=== PATIENT | female | born 1970 | race Caucasian/White ===

== ENCOUNTER 2022-11-12 09:34 | Emergency (ER) | payer SELFPAY ==
[2022-11-12 10:15] VITALS: BP 147/91; PULSE 65; RESP 20; TEMP 36.7; O2SAT 95; BMI 36.8
--- NOTE | 2022-11-12 10:23 | EXP.UTC ---
Discharge Plan Disposition Patient Disposition: Home, Self-Care Condition: Good Prescriptions Prescriptions: New prednisone [prednisone] 20 mg tablet 20 mg PO BID 4 Days Qty: 8 0RF amoxicillin [amoxicillin] 875 mg tablet 875 mg PO Q12H Qty: 20 0RF benzonatate [benzonatate] 100 mg capsule 100 mg PO TIDP PRN (Reason: Cough) Qty: 30 0RF Referrals Follow up/Referrals: Provider,Referral, MD [Primary Care Provider] - See instructions Activity Restrictions/Add. Instructions Additional Instructions/Restrictions: Drink plenty of fluids. Take tylenol or ibuprofen for pain or fever. Take the medications as directed. Follow up with your regular doctor. GO TO THE ER FOR ANY WORSENING SYMPTOMS Throw your tooth brush away and get a new one. Clinical Impressions Clinical Impression: Strep throat Stand Alone Forms Stand Alone Forms: Work/School Release Instructions Patient Instructions: Strep Throat, DI for Strep Throat Discharge ED Provider: Eric Burgos [facility] [place] HPI General Stated complaint: Sore throat, congestion Time Seen by Provider: 11/12/22 10:23 History of Present Illness Provider Complaint: She states that for the past 3 days she has had sore throat, chills, body aches, sinus congestion and malaise. Related Data Previous Rx's Medication Instructions Recorded amoxicillin 875 mg tablet 875 mg PO Q12H #20 tabs 11/12/22 benzonatate 100 mg capsule 100 mg PO TIDP PRN Cough #30 caps 11/12/22 prednisone 20 mg tablet 20 mg PO BID 4 days #8 tabs 11/12/22 Allergies Allergy/AdvReac Type Severity Reaction Status Date / Time No Known Allergies Allergy Verified 11/12/22 10:24 [facility] Disclaimer: The information contained in this section may have been updated after the patient was seen, as this information can be updated by other users. Social History Smoking Status: Never smoker alcohol intake: never current occupational status: employed Travel in the last 8 weeks: None ROS Obtained: Yes All systems reviewed & no additional complaints except as documented Constitutional Constitutional: Reports chills and Reports fever(s) Eyes Eyes: Denies eye discharge ENT Ears, Nose, Mouth, and Throat: Reports as per HPI Cardiovascular Cardiovascular: Denies chest pain Respiratory Respiratory: Denies chest congestion and Reports cough Gastrointestinal Gastrointestingal: Reports nausea; Denies abdominal pain, constipation, cramping, diarrhea or vomiting Musculoskeletal Musculoskeletal: Denies arthralgias Integumentary/Breasts Skin/Breast: Denies rash Neurologic Neurologic: Denies paresthesias Physical Exam General General appearance: alert and in no apparent distress Head Head exam: atraumatic, normocephalic and normal inspection Eye Eye exam: Present normal appearance, PERRL and EOMI ENT ENT exam: Present mucous membranes moist and normal external ear exam Expanded ENT Exam TM/Canal exam: Bilateral TM: erythema and bulging Nose exam: Absent sinus tenderness Mouth exam: Present normal external inspection; Absent drooling Teeth exam: Present normal inspection Throat exam: Present tonsillar erythema, tonsillomegaly and tonsillar exudate Neck Neck exam: Present normal inspection, full ROM and trachea midline; Absent tenderness, meningismus or lymphadenopathy Chest Chest inspection: Present normal inspection and symmetric chest wall rise; Absent tenderness Respiratory Respiratory exam: Present normal lung sounds bilaterally; Absent respiratory distress, wheezes or stridor Cardiovascular Cardiovascular exam: Present regular rate and normal rhythm; Absent systolic murmur or diastolic murmur Abdominal Exam Abdominal exam: Present soft and normal bowel sounds; Absent distention, tenderness, guarding, rebound or rigidity Extremities Exam Extremities exam: Present normal inspection and normal capillary refill; Absent calf tendern
[2022-11-12 10:29] LABS: UTC Strep Screen (Rapid) Positive (Negative)
[2022-11-12 11:20] VITALS: BP 147/91; PULSE 65; RESP 20; TEMP 36.7; O2SAT 95
== END 2022-11-12 11:20 | disposition home or self-care (01) ==
PROVIDERS: Emergency Provider Nurse Practitioner Family
DX: J02.0 Streptococcal pharyngitis (principal); R53.81 Other malaise; R50.9 Fever, unspecified; R09.81 Nasal congestion
CPT/HCPCS: 87880; 99212; 99214; G0463

== ENCOUNTER 2022-12-24 11:42 | Emergency (ER) | payer MEDICAID, SELFPAY ==
[2022-12-24 12:20] VITALS: BP 157/88; PULSE 66; RESP 18; TEMP 36.6; O2SAT 97; BMI 34.5
--- NOTE | 2022-12-24 12:25 | EXP.UTC ---
Discharge Plan Disposition Patient Disposition: Home, Self-Care Condition: Good Prescriptions Prescriptions: New amoxicillin [amoxicillin] 875 mg tablet 875 mg PO Q12H Qty: 20 0RF benzonatate [benzonatate] 100 mg capsule 100 mg PO TIDP PRN (Reason: Cough) Qty: 30 0RF No Action prednisone [prednisone] 20 mg tablet 20 mg PO BID 4 Days Qty: 8 0RF amoxicillin [amoxicillin] 875 mg tablet 875 mg PO Q12H Qty: 20 0RF benzonatate [benzonatate] 100 mg capsule 100 mg PO TIDP PRN (Reason: Cough) Qty: 30 0RF Referrals Follow up/Referrals: Provider,Referral, MD [Primary Care Provider] - See instructions Activity Restrictions/Add. Instructions Additional Instructions/Restrictions: Drink plenty of fluids. Take tylenol or ibuprofen for pain or fever. Take the medications as directed. Follow up with your regular doctor. GO TO THE ER FOR ANY WORSENING SYMPTOMS Throw your tooth brush away and get a new one. Clinical Impressions Clinical Impression: Strep throat Stand Alone Forms Stand Alone Forms: Work/School Release Discharge ED Provider: Eric Burgos [facility] General Stated complaint: Sore throat, congestion, bodyaches Time Seen by Provider: 12/24/22 12:25 History of Present Illness Provider Complaint: she states that for the past 2 days she has had worsening sore throat. Related Data Previous Rx's Medication Instructions Recorded amoxicillin 875 mg tablet 875 mg PO Q12H #20 tabs 11/12/22 benzonatate 100 mg capsule 100 mg PO TIDP PRN Cough #30 caps 11/12/22 prednisone 20 mg tablet 20 mg PO BID 4 days #8 tabs 11/12/22 amoxicillin 875 mg tablet 875 mg PO Q12H #20 tabs 12/24/22 benzonatate 100 mg capsule 100 mg PO TIDP PRN Cough #30 caps 12/24/22 Allergies Allergy/AdvReac Type Severity Reaction Status Date / Time No Known Allergies Allergy Verified 11/12/22 10:24 [facility] Disclaimer: The information contained in this section may have been updated after the patient was seen, as this information can be updated by other users. Social History Smoking Status: Never smoker alcohol intake: never current occupational status: employed Travel in the last 8 weeks: None ROS Obtained: Yes All systems reviewed & no additional complaints except as documented Constitutional Constitutional: Reports chills and Reports fever(s) Eyes Eyes: Denies eye discharge ENT Ears, Nose, Mouth, and Throat: Reports as per HPI Cardiovascular Cardiovascular: Denies chest pain Respiratory Respiratory: Denies chest congestion and Reports cough Gastrointestinal Gastrointestingal: Reports nausea; Denies abdominal pain, constipation, cramping, diarrhea or vomiting Musculoskeletal Musculoskeletal: Denies arthralgias Integumentary/Breasts Skin/Breast: Denies rash Neurologic Neurologic: Denies paresthesias Physical Exam General General appearance: alert and in no apparent distress Head Head exam: atraumatic, normocephalic and normal inspection Eye Eye exam: Present normal appearance, PERRL and EOMI ENT ENT exam: Present mucous membranes moist and normal external ear exam Expanded ENT Exam TM/Canal exam: Bilateral TM: erythema and bulging Nose exam: Absent sinus tenderness Mouth exam: Present normal external inspection; Absent drooling Teeth exam: Present normal inspection Throat exam: Present tonsillar erythema, tonsillomegaly and tonsillar exudate Neck Neck exam: Present normal inspection, full ROM and trachea midline; Absent tenderness, meningismus or lymphadenopathy Chest Chest inspection: Present normal inspection and symmetric chest wall rise; Absent tenderness Respiratory Respiratory exam: Present normal lung sounds bilaterally; Absent respiratory distress, wheezes or stridor Cardiovascular Cardiovascular exam: Present regular rate and normal rhythm; Absent systolic murmur or diastolic murmur Abdominal Exam Abdominal exam
[2022-12-24 12:29] LABS: UTC Strep Screen (Rapid) Positive (Negative)
[2022-12-24 12:54] VITALS: BP 157/88; PULSE 66; RESP 18; TEMP 36.6; O2SAT 97
== END 2022-12-24 12:56 | disposition home or self-care (01) ==
PROVIDERS: Emergency Provider Nurse Practitioner Family
DX: J02.0 Streptococcal pharyngitis (principal); R09.81 Nasal congestion
CPT/HCPCS: 87880; 99212; 99214; G0463

== ENCOUNTER 2023-03-06 10:09 | Emergency (ER) | payer MEDICAID, SELFPAY ==
[2023-03-06 10:10] VITALS: BP 159/88; PULSE 60; RESP 19; TEMP 36.9; O2SAT 98; BMI 35.6
--- NOTE | 2023-03-06 10:23 | PC.NURSE ---
UA sent to lab; pt ambulatory to ED room 1 without complications. Call antonio within reach
[2023-03-06 10:25] LABS: Microscopic, Urine URINE MICROSCOPIC (MICROSCOPIC)
[2023-03-06 10:31] VITALS: BP 138/68; PULSE 68; O2SAT 97
[2023-03-06 10:38] LABS: Basophils % 0.5 % (0.1-2.0); Eosinophils # 0.2 K/mm3 (0.0-0.4); Eosinophils % 2.8 % (0.1-12.0); Hematocrit 40.3 % (37.0-47.0); Hemoglobin 12.8 g/dL (12.2-16.2); Lymphocytes # 1.7 K/mm3 (0.7-4.5); Lymphocytes % 27.2 % (10-50); Mean Corpuscular HGB Conc 31.7 g/dL (31.8-35.4); Mean Corpuscular Hemoglobin 26.6 pg (27.0-31.2); Mean Corpuscular Volume 83.7 fl (81-99); Mean Platelet Volume 8.3 fl (7.4-10.4); Monocytes # 0.4 K/mm3 (0.1-1.0); Monocytes % 5.6 % (1.7-9.3); Neutrophils % 63.8 % (37.0-80.0); Platelet Count 227 K/mm3 (142-424); Red Blood Count 4.82 M/mm3 (4.20-5.40); Red Cell Distribution Width 14.1 % (11.5-17.5); White Blood Count 6.3 K/mm3 (4.8-10.8)
[2023-03-06 10:43] LABS: Alanine Aminotransferase 24 U/L (12-78); Albumin/Globulin Ratio 1.1 (1.1-1.8); Alkaline Phosphatase 94 U/L (38-126); Anion Gap 9.5 mEq/L (5-15); Aspartate Amino Transferase 27 U/L (14-36); Bilirubin,Total 0.3 mg/dl (0.2-1.3); Blood Urea Nitrogen 17 mg/dl (7-17); Calcium 8.8 mg/dl (8.4-10.2); Carbon Dioxide 28 mmol/L (22.0-30.0); Chloride 107 mmol/L (98-107); Creatinine Clearance Estimated 130 mL/min (50-200); Estimated Glomerular Filt Rate 88 ml/min (>60); GFR (African American) 106 ML/MIN (>60); Globulin 3.5 g/dL (1.3-3.2); Glucose 90 mg/dl (74-100); Lipase 69 U/L (23-300); Potassium 3.5 mmoL/L (3.5-5.1); Sodium 141 mmol/L (136-145); Total Protein,Serum 7.5 g/dl (6.3-8.2)
[2023-03-06 10:43] LABS: Appearance,Urine CLEAR (Clear); Bilirubin,Urine Negative (Negative); Blood, Urine 1+ (Negative); Color,Urine YELLOW (Yellow); Glucose,Urine (UA) Negative (Negative); Ketones,Urine Negative (Negative); Leukocyte Esterase,Urine Negative (Negative); Nitrate,Urine Negative (Negative); PH,Urine 5.5 (5.0-8.5); Protein,Urine Negative (Negative); Specific Gravity, Urine >= 1.030 (1.005-1.030); Urobilinogen,Urine 0.2 EU/dl (0.2)
[2023-03-06 11:01] VITALS: BP 119/59; PULSE 60; O2SAT 97
[2023-03-06 11:01] LABS: WBC,Urine Occasional #/hpf (0-3)
--- NOTE | 2023-03-06 11:10 | HMH.EDGENADL ---
Discharge Plan Disposition Patient Disposition: Home, Self-Care Condition: Good Chief Complaint: Abdominal Pain Prescriptions Prescriptions: No Action No Known Home Medications Referrals Follow up/Referrals: Provider,Anne, [Primary Care Provider] - See instructions Activity Restrictions/Add. Instructions Additional Instructions/Restrictions: Establish care with a PCP for follow-up of your abdominal pain and fatigue Clinical Impressions Clinical Impression: Abdominal pain Qualifiers: Abdominal location: generalized Qualified Code(s): R10.84 - Generalized abdominal pain Fatigue Qualifiers: Fatigue type: other Qualified Code(s): R53.83 - Other fatigue Instructions Patient Instructions: DI for Acute Abdominal Pain Discharge ED Provider: Aubrey Duran Adult HPI General Chief complaint: Abdominal Pain Stated complaint: Abd pain, back pain Time Seen by Provider: 03/06/23 10:23 Mode of Arrival: Ambulatory Source of Information: Patient Limitations: No Limitations Description of Symptoms (Recalled from ER Triage Doc. by RN): 52 F presents with abdominal pain for 1 month. She reports this pain began in her epigastric region, and wraps around to her back and radiates down. Patient denies fever, chills, vomiting, diarrhea. She does report nausea. History of Present Illness HPI narrative: 52yo F evaluated in the ER for diffuse abdominal pain for 1 month. Reports normal p.o. intake, normal bowel movements. Denies any previous abdominal surgery. Reports nausea without vomiting or diarrhea. Has not been seen by her PCP. Also complains of fatigue that been ongoing for at least 1 month. Related Data Home Medications Medication Instructions Recorded Confirmed No Known Home Medications 03/06/23 03/06/23 Allergies Allergy/AdvReac Type Severity Reaction Status Date / Time No Known Allergies Allergy Verified 11/12/22 10:24 [facility] Disclaimer: The information contained in this section may have been updated after the patient was seen, as this information can be updated by other users. Medical History No significant past medical history Social History Smoking Status: Never smoker alcohol intake: never current occupational status: employed Travel in the last 8 weeks: None ROS Obtained: Yes Systems reviewed as appropriate & no additional complaints except as documented Physical Exam General General appearance: alert and in no apparent distress Head Head exam: atraumatic Eye Eye exam: Present normal appearance Chest Chest inspection: Present normal inspection Respiratory Respiratory exam: Present normal lung sounds bilaterally; Absent respiratory distress Cardiovascular Cardiovascular exam: Present regular rate, normal rhythm and normal heart sounds Abdominal Exam Abdominal exam: Present soft and normal bowel sounds; Absent distention, tenderness, guarding, rebound or rigidity Extremities Exam Extremities exam: Present normal inspection and normal capillary refill; Absent tenderness Neurological Exam Neurological exam: Present alert, oriented X3 and CN II-XII intact Psychiatric Psychiatric exam: Present normal affect Skin Skin exam: Present warm Medical Decision Making Steve Inquiry Pt receiving controlled substance: No Steve was queried for this patient: No Vital Signs: 03/06/23 10:10 03/06/23 10:31 03/06/23 11:01 Temperature 98.4 F Temperature Source Oral Pulse Rate 68 60 Pulse Rate [Left] 60 Respiratory Rate 19 Blood Pressure 138/68 119/59 L Blood Pressure [Right Arm] 159/88 H Blood Pressure Mean 91 89 Blood Pressure Mean [Right Arm] 111 Blood Pressure Source [Right Arm] Automatic Cuff Blood Pressure Position [Right Arm] Sitting 02 Sat by Pulse Oximetry 98 97 97 Oxygen Delivery Method Room Air Lab Data Lab
[2023-03-06 11:14] VITALS: BP 119/69; PULSE 59; RESP 17; TEMP 36.8; O2SAT 99
[2023-03-06 17:48] LABS: Barbiturates Screen,Urine Negative ng/ml (<200)
[2023-03-06 17:49] LABS: Amphetamine/Metha Screen,Urine Negative ng/ml (<1000); Benzodiazepines Screen,Urine Negative ng/ml (<200)
[2023-03-06 17:50] LABS: Methadone Screen,Urine Negative ng/ml (<300)
[2023-03-06 17:51] LABS: Cannabinoid Screen,Urine Negative ng/ml (<50); Cocaine Screen,Urine Negative ng/ml (<300)
[2023-03-06 17:52] LABS: Opiate Screen,Urine Negative ng/ml (<300)
[2023-03-06 17:53] LABS: Phencyclidine Screen,Urine Negative ng/ml (<25)
== END 2023-03-06 11:17 | disposition home or self-care (01) ==
PROVIDERS: Emergency Provider Family Medicine
DX: R10.84 Generalized abdominal pain (principal); R53.83 Other fatigue
CPT/HCPCS: 80053; 80305; 81001; 83690; 85025; 96361; 96374; 99284; 99285; J2405